=== PATIENT | female | born 1995 | race African-American/Black ===

== ENCOUNTER 2025-04-04 08:26 | Inpatient (IN) | payer OTHER, SELFPAY ==
[2025-04-04] VITALS (41 sets, daily range): BP systolic 73–129; BP diastolic 35–81; PULSE 63–105; RESP 15–25; TEMP 36.6–36.9; O2SAT 97–100; BMI 39.9
[2025-04-04 09:13] LABS: Hematocrit 39.8 % (37.0-47.0); Hemoglobin 12.7 g/dL (12.0-15.0); Immature Granulocyte Percent A 0.9 % (0-0.5); Lymphocytes Absolute Auto 2.12 K/mm3 (0.9-3.2); Mean Corpuscular HGB Conc 31.9 g/dl (32-36); Mean Corpuscular Hemoglobin 27.8 pg (26-34); Mean Corpuscular Volume 87.1 fl (80-100); Nucleated Red Blood Cells Absolute Auto 0.000 K/mm3 (0.0-0.012); Nucleated Red Blood Cells Perc 0.0 % (0.0-0.2); Platelet Count Result 209 k/mm3 (150-375); Red Blood Count 4.57 M/mm3 (4.2-5.4); White Blood Count 8.1 K/mm3 (4.5-10.0)
[2025-04-04] MEDS: ACETAMINOPHEN 500 MG TABLET 1000 MG PO ×3 (09:17→23:29)
[2025-04-04] MEDS: LACTATED RINGERS 1,000 ML 125 ML IV CONT (09:18)
--- NOTE | 2025-04-04 09:23 | LDADM ---
This patient, Mitali Doyle, was admitted to Labor/Delivery/Recovery 119 on 04/04/25 at 08:26. Plans for labor, pain management and were discussed with patient. Patient/family oriented to hospital policies and general routines including ID bracelet, bed and alarms, visiting hours, pain management, procedures, bathroom and other care routines, personal items, smoking policy, room service/diet and guest tray routines, security routines, and visiting hours. Patient/Family are encouraged to report perceived risks to care and to ask questions if they do not understand what they are told or what they should do. See OBIX for further documentation.
--- NOTE | 2025-04-04 09:55 | WPDANESEPPF ---
Anes - Initial Pre Proc Eval Procedure: Operation Date: 04/04/25 12:00 Proposed Procedures p Repeat Section - Catrachito Nicholson MD Date/Time: 04/04/25 09:55 Surgeon: Catrachito Nicholson MD Pre Op Diagnosis: repeat c/s Patient Data Age: 29 Gender: F Height: 1.75 m Weight: 122.5 kg Last Vital Signs Temp 36.6 C 04/04/25 09:17 Pulse 88 04/04/25 09:18 BP 128/80 04/04/25 09:18 O2 Del Method Room Air 04/04/25 09:23 Allergies Allergy/AdvReac Type Severity Reaction Status Date / Time avocado AdvReac Verified 03/13/25 13:54 Laboratory Tests 04/04/25 09:02 WBC 8.1 K/mm3 (4.5-10.0) RBC 4.57 M/mm3 (4.2-5.4) Hgb 12.7 g/dL (12.0-15.0) Hct 39.8 % (37.0-47.0) MCV 87.1 fl (80-100) MCH 27.8 pg (26-34) MCHC 31.9 L g/dl (32-36) RDW 17.1 H % (11.5-14.5) Plt Count 209 k/mm3 (150-375) MPV 9.9 fl (7.4-10.4) Immature Gran % (Auto) 0.9 H % (0-0.5) Neut % (Auto) 60.1 % (45.5-73.1) Lymph % (Auto) 26.0 % (18.3-44.2) [place] % (Auto) 10.8 H % (2.6-8.5) Eos % (Auto) 2.0 % (0-4.4) Baso % (Auto) 0.2 % (0.2-1.2) Lymph # (Auto) 2.12 K/mm3 (0.9-3.2) [place] # (Auto) 0.9 H K/mm3 (0.1-0.6) Eos # (Auto) 0.2 K/mm3 (0-0.3) Baso # (Auto) 0.0 K/mm3 (0.0-0.1) Abs Immat Gran (auto) 0.07 H K/mm3 (0.00-0.031) Absolute Neuts (auto) 4.9 K/mm3 (1.3-6.7) Absolute Nucleated RBC 0.000 K/mm3 (0.0-0.012) Nucleated RBC % 0.0 % (0.0-0.2) Blood Type Pending Antibody Screen Pending Patient hx anesthesia problems: none Family hx anesthesia problems: none Results Review: All pre-operative results and documents have been reviewed as part of the pre-operative evaluation. [facility] Social History Social History Smoking status: Never smoker Substance use: never Lack of Transportation: No Lack of Food: Never True Current Housing: I Have Housing Concerned About Future Housing: No Difficulty Paying Gas/Electric Bills: No Difficulty Paying for Meds: No Currently Unemployed: No Education: High School Diploma/GED Difficulty w/ Childcare or Family Care: No Spiritual care concerns: No Anes - Eval Final PreProcedure Day of Procedure 04/04/25 09:55 Patient weight: obese Heart: regular rate and rhythm Lungs: clear to auscultation and normal air movement Airway: Mallampati scale class II Neurological: alert and oriented Last oral intake: >/= 8 hours ASA classification: II Emergent: no Anesthetic plan: proceed Anesthesia type and monitoring: regional spinal and standard monitoring Results Review: All pre-operative results and documents have been reviewed as part of the pre-operative evaluation. Informed Consent: The patient's anesthetic plan and its attendant risks and benefits were discussed with the patient/family/POA. Questions were solicited and answers provided to the satisfaction of the patient/family/POA.
[2025-04-04 10:08] LABS: Syphilis IgG/IgM Antibody Non-Reactive (Nonreactive)
[2025-04-04] MEDS: FAMOTIDINE 20 MG/2 ML VIAL IV PUSH (11:29)
[2025-04-04] MEDS: ONDANSETRON INJ 4 MG/2 ML VIAL IV PUSH (11:29)
[2025-04-04] MEDS: ceFAZolin 3 GM/D5W 100 ML 100 ML IVPB (11:29)
--- NOTE | 2025-04-04 11:32 | PM.IMHP ---
H&P: HPI History of Present Illness Date/Time: 04/04/25 11:32 Chief Complaint: repeat c section Narrative: Patient is a 29 year old who presents for repeat c section. She has a history of c section x1. Her has been otherwise complicated by obesity. testing has been reactive. She denies strong contractions, leakage of fluid or vaginal bleeding. Good movement. Review of Systems Review of Systems: All systems reviewed & are unremarkable except as noted in HPI and below PMFSH Social History Social History Smoking status: Never smoker Substance use: never Lack of Transportation: No Lack of Food: Never True Current Housing: I Have Housing Concerned About Future Housing: No Difficulty Paying Gas/Electric Bills: No Difficulty Paying for Meds: No Currently Unemployed: No Education: High School Diploma/GED Difficulty w/ Childcare or Family Care: No Spiritual care concerns: No Meds Home Medications and Allergies Allergies Allergy/AdvReac Type Severity Reaction Status Date / Time avocado AdvReac Verified 03/13/25 13:54 Vital Signs Vital Signs - 24 hr 04/04/25 09:17 04/04/25 09:18 04/04/25 09:23 Temperature 97.8 F Pulse Rate 88 Blood Pressure 128/80 Oxygen Delivery Room Air Exam Const: General: comfortable and no acute distress HENMT: Mouth: Yes moist mucous membranes Resp: Effort & Inspection: normal respiratory effort Cardio: Rate: regular rate Skin: General skin exam: normal color Extrem: General: normal to inspection Psych: Mental Status: mental status grossly normal H&P: Results Labs Labs: Short CBC 04/04/25 Range/Units 09:02 WBC 8.1 (4.5-10.0) K/mm3 Hgb 12.7 (12.0-15.0) g/dL Hct 39.8 (37.0-47.0) % Plt Count 209 (150-375) k/mm3 Assessment and Plan Assessment and plan (1) Hx of section complicating : Code(s): O34.219 - Maternal care for unspecified type scar from previous delivery Status: Acute Assessment and Plan: - hx of c section x1 - risks and benefits of repeat c section and TOLAC discussed with patient who would like to proceed with repeat c section - NST reactive
--- NOTE | 2025-04-04 11:39 | WPDHPUPDATE1 ---
History and Physical Update Update Date/Time: 04/04/25 11:39 History and Physical has been reviewed, including an updated exam of the patient. There are NO changes in the patient's condition. Risks, benefits, and alternatives have been discussed and questions answered. Patient agrees to proceed with procedure.
--- NOTE | 2025-04-04 13:20 | P.PCNOB_ITS ---
OB - Delivery Note Procedure Delivery date: 04/04/25 Pre-op diagnosis: Previous Delivery Post-op Diagnosis: Same Delivery monitor: External FHT Prior to decision for section, ACOG/SMFM labor guidelines were consider ed and discussed with the patient and staff. Decision made to proceed with the section.: Yes Procedure Performed: Repeat Secondary branch: low cervical, transverse Surgeon: Catrachito Nicholson MD Anesthesia type: Epidural Description of Procedure/Findings: The patient was taken to the operating room where she was placed in the dorsal supine position with a leftward tilt. The electronic monitor was placed and heart rate was found to be reassuring. She was prepped and draped in the normal sterile fashion, and anesthesia was checked to be adequate. A Pfannenstiel skin incision was made with the scalpel and carried through to the underlying layer of fascia with the scalpel. The fascia was incised in the midline and the incision extended laterally with the Sidhu scissors. The superior aspect of the fascial incision was then grasped with Darryl clamps, elevated, and the underlying rectus muscles dissected off bluntly and with Sidhu scissors. Attention was then turned to the inferior aspect of the fascial incision, which in similar fashion was grasped, elevated, and the rectus muscles dissected off.? The rectus muscles were then in the midline, and the peritoneum entered using two Peans and Metzenbaum scissors. The peritoneal incision was extended superiorly and inferiorly with good visualization of the bladder. With the bladder blade providing retraction and visualization, the lower uterine segment was incised in a transverse fashion with the scalpel. The uterine incision was then extended laterally. The bladder blade was removed and the infant's head was elevated and delivered atraumatically. The remainder of the infant was then delivered without difficulty, and the infant's nose and mouth were suctioned with the bulb suction. The umbilical cord was doubly clamped and cut. The infant was then handed off to the waiting nursing staff. Specimens then obtained as listed below. The placenta was then removed manually and the uterus was exteriorized and cleared of all clots and debris. The uterine incision was repaired with 0- Monocryl in a running, interlocked fashion. A second layer of the same suture imbricated the incision and achieved hemostasis. The posterior cul-de-sac was manually cleared of all clots and debris. The uterus was returned to the abdomen. The gutters were then manually cleared of all clots and debris.? The uterine incision was visualized to be hemostatic. The fascia was reapproximated with 0-Vicryl in a running fashion. The subcutaneous tissues were irrigated with warmed normal saline, and hemostasis was assured. The subcutaneous tissue was greater than 2 cm and closed in a running fashion with 2-0 plain gut suture.? The skin was closed with 4-0 monocryl in a running subcuticular stitch. Fundal pressure was applied to express remaining intrauterine clots and debris. The patient tolerated the procedure well. Sponge, lap, and needle counts were correct times three per nursing. The patient was taken to the recovery room in stable condition. Estimated Blood Loss: 480 Pathology: None sent Complications: No immediate complications Condition: Stable Disposition: Floor Baby Date of : 04/04/25 Gestational Age by Date: 39 gender: Male Weight (pounds): 7 Weight (ounces): 11 presentation: vertex position: Right Occiput Posterior Placenta delivery description: Expressed Cord Vessel Description: 3 Vessels and Delayed Cord Clamping
[2025-04-04] MEDS: OXYTOCIN 30 UNITS/NS 500 ML 30 UNITS/500 ML BAG 125 UNITS IV CONT (13:25)
[2025-04-04] MEDS: LORATADINE 10 MG TABLET PO (13:57)
--- NOTE | 2025-04-04 15:30 | OBPPTRN ---
Patient transferred to post room #280 via stretcher. Support person present. Oriented to unit, room, information board, rooming in, admission packet and security measures. Patient verbalizes understanding.
[2025-04-04] MEDS: DOCUSATE SODIUM 100 MG CAPSULE PO (17:19)
[2025-04-04] MEDS: SIMETHICONE 80 MG TAB.CHEW PO (17:19)
[2025-04-04] MEDS: KETOROLAC 15 MG/ML VIAL (*BKC) IV PUSH ×2 (17:20→23:29)
[2025-04-04] MEDS: DEXTROSE 5%/0.45% SOD CHL 1,000 ML 125 ML IV CONT (17:56)
[2025-04-04] MEDS: LIDOCAINE 5% PATCH 1 PATCH TRANSDERM (19:36)
[2025-04-05 05:04] LABS: Hematocrit 35.2 % (37.0-47.0); Hemoglobin 11.0 g/dL (12.0-15.0); Immature Granulocyte Percent A 0.5 % (0-0.5); Lymphocytes Absolute Auto 2.00 K/mm3 (0.9-3.2); Mean Corpuscular HGB Conc 31.3 g/dl (32-36); Mean Corpuscular Hemoglobin 27.7 pg (26-34); Mean Corpuscular Volume 88.7 fl (80-100); Nucleated Red Blood Cells Absolute Auto 0.000 K/mm3 (0.0-0.012); Nucleated Red Blood Cells Perc 0.0 % (0.0-0.2); Platelet Count Result 193 k/mm3 (150-375); Red Blood Count 3.97 M/mm3 (4.2-5.4); White Blood Count 10.0 K/mm3 (4.5-10.0)
[2025-04-05] MEDS: KETOROLAC 15 MG/ML VIAL (*BKC) IV PUSH (05:28)
[2025-04-05] MEDS: ACETAMINOPHEN 500 MG TABLET 1000 MG PO ×3 (05:29→19:12)
--- NOTE | 2025-04-05 07:25 | WPDANLDPN2 ---
Anes-Prog Note L&D Date/Time: 04/05/25 07:25 Neuro status: Neuro function grossly intact. Cardiovascular status: normal Respiratory status: normal Airway patency: baseline Mental status: baseline Post-Op hydration status: normal Vital Signs: Last Vital Signs Temp 36.6 C 04/04/25 23:50 Pulse 92 04/04/25 23:50 Resp 18 04/04/25 23:50 BP 128/70 04/04/25 23:50 Pulse Ox 100 04/04/25 23:50 O2 Del Method Room Air 04/04/25 19:00 Pain score (VAS): 0 I/O: Intake & Output 04/04/25 04/04/25 04/05/25 15:59 23:59 07:59 Output Total 175 550 500 Balance -175 -550 -500 Post-procedural complaints: none Patient feedback: Patient satisfied with anesthetic care.
--- NOTE | 2025-04-05 07:25 | WPDANLDNPN2 ---
Anes-Prog Note L&D-Neuraxial Date/Time: 04/05/25 07:25 Patient feedback: Patient satisfied with post-operative pain management.
[2025-04-05 07:40] VITALS: BP 116/60; PULSE 80; RESP 20; TEMP 36.2; O2SAT 100
--- NOTE | 2025-04-05 09:10 | P.PNOB_ITS ---
OB - PN: Subj Subjective Date/time seen: 04/05/25 09:10 Interval history: PPD#1 s/p RLTCS Doing well, pain controlled Catheter removed this AM, waiting for spontaneous void Tolerating general diet OB - PN: Obj Data Labs 04/05/25 04:08 Labs: Laboratory Results - last 24 hr 04/04/25 04/05/25 09:02 04:08 WBC 8.1 10.0 RBC 4.57 3.97 L Hgb 12.7 11.0 L Hct 39.8 35.2 L MCV 87.1 88.7 MCH 27.8 27.7 MCHC 31.9 L 31.3 L RDW 17.1 H 17.1 H Plt Count 209 193 MPV 9.9 10.5 H Immature Gran % (Auto) 0.9 H 0.5 Neut % (Auto) 60.1 65.9 Lymph % (Auto) 26.0 19.9 [place] % (Auto) 10.8 H 11.3 H Eos % (Auto) 2.0 2.1 Baso % (Auto) 0.2 0.3 Lymph # (Auto) 2.12 2.00 [place] # (Auto) 0.9 H 1.1 H Eos # (Auto) 0.2 0.2 Baso # (Auto) 0.0 0.0 Abs Immat Gran (auto) 0.07 H 0.05 H Absolute Neuts (auto) 4.9 6.6 Absolute Nucleated RBC 0.000 0.000 Nucleated RBC % 0.0 0.0 Syphilis IgG/IgM Ab Non-reactive Blood Type A Positive Antibody Screen Negative OB - PN A/P Assessment and Plan (1) S/P : Code(s): Z98.891 - History of uterine scar from previous surgery Status: Acute Plan day: 1 Plan: routine care Time Spent With Patient Time: Total time spent is greater than 50% in coordination of care (as documented) at patient's floor/unit and/or counseling patient: Review of Systems 2 Review of Systems: All systems reviewed & are unremarkable except as noted in HPI and below Exam 2 Const: General: comfortable and no acute distress O rientation/consciousness: patient oriented x3 Resp: Effort & Inspection: normal respiratory effort GI: Other: incision c/d/i, soft nontender
[2025-04-05] MEDS: DOCUSATE SODIUM 100 MG CAPSULE PO ×2 (09:18→19:13)
[2025-04-05] MEDS: SIMETHICONE 80 MG TAB.CHEW PO ×3 (09:18→19:13)
[2025-04-05] MEDS: MULTIVIT/MIN/PREN/FOL AC/IRON TABLET 1 TAB PO (09:18)
[2025-04-05] MEDS: IBUPROFEN 600 MG TABLET PO ×2 (11:48→19:12)
--- NOTE | 2025-04-05 13:06 | PCCCNOTE ---
Care Coordination. Patient referred to CC for transportation and resources. Met with pt. and friend at bedside. Pt. plans to return home with her toddler and new baby. She reports having all necessary baby care items, but was interested in more diapers. Gave her resource information including WIC and transportation information. Provided pt. with baby supply basket which has diapers, wipes, etc. Pt. reports having good family support from her mother and denies further CC needs.
[2025-04-05] MEDS: LIDOCAINE 5% PATCH 1 PATCH TRANSDERM (19:09)
[2025-04-05 19:39] VITALS: BP 116/74; PULSE 100; RESP 18; TEMP 36.4; O2SAT 100
[2025-04-06] MEDS: ACETAMINOPHEN 500 MG TABLET 1000 MG PO ×3 (00:35→13:35)
[2025-04-06] MEDS: IBUPROFEN 600 MG TABLET PO ×3 (00:35→13:35)
[2025-04-06 04:47] VITALS: BP 102/60; PULSE 73; RESP 14; TEMP 36.7; O2SAT 99
[2025-04-06] MEDS: SIMETHICONE 80 MG TAB.CHEW PO ×2 (06:59→13:36)
[2025-04-06 07:30] VITALS: BP 126/70; PULSE 84; RESP 18; TEMP 36.3; O2SAT 99
--- NOTE | 2025-04-06 08:34 | P.PNOB_ITS ---
OB - PN: Subj Subjective Date/time seen: 04/06/25 08:34 Interval history: PPD#1 s/p RLTCS Doing well, pain controlled Catheter removed this AM, waiting for spontaneous void Tolerating general diet Patient comments: no complaints, pain well controlled, incisional pain, tolerating diet and flatus present OB - PN: Obj Data Labs 04/05/25 04:08 OB - PN A/P Plan day: 2 Plan: routine care Comments: POD#2 LTCS - no problems, Time Spent With Patient Time: Total time spent is greater than 50% in coordination of care (as documented) at patient's floor/unit and/or counseling patient: Exam 2 Const: General: comfortable, no acute distress and alert Resp: Effort & Inspection: normal respiratory effort Auscultation: no crackles, no rales and no rhonchi Cardio: Rate: regular rate Heart sounds: no click, no murmurs and no rubs GI: Inspection: non-distended Auscultation: normal bowel sounds Other: Incision - CDI Extrem: General: normal to inspection, no pedal edema and no calf tenderness
--- NOTE | 2025-04-06 09:41 | P.DS_ITS ---
DS: Admitting Diagnosis Discharge Date 04/06/2025 Admitting Diagnosis term DS: Discharge Diagnosis Discharge Diagnosis (1) Term delivered: Code(s): O80 - Encounter for full-term uncomplicated delivery Status: Acute OB - DS: Summary OB Procedures : None OB Procedures Intrapartum: OB Procedures: : None Peripartum Data Procedures: Procedures Operation Date: 04/04/25 12:00 Actual Procedure Side Surgeon p Repeat Section Catrachito Nicholson MD Time Spent with Patient Time attestation: Total time spent providing and/or coordinating discharge services: Discharge Plan Discharge Consulting providers: Jayna Catherine Discharging Clinician: Alonso Domingo Patient Disposition: Home Activity: pelvic rest Diet: regular Patient Instructions: Antibiotic Form Patient Language: Upper Sorbian Stand Alone Forms: General Discharge Information Follow-up/Referrals: Alonso Domingo MD [Physician, [employer]ER[employer] ANNOUNCER] Discharge Medications: New hydrocodone-acetaminophen 5-325 mg tablet 1 - 2 tablet PO Q6H PRN (Reason: pain) Qty: 25 0RF Date of admission: 04/04/25 08:26 Primary Care Provider: PHYSICIAN,TIPPLE GREASER Admitting Provider: Catrachito Nicholson Attending physician on admission: Catrachito Nicholson Condition: Stable
[2025-04-06] MEDS: MULTIVIT/MIN/PREN/FOL AC/IRON TABLET 1 TAB PO (10:05)
[2025-04-06] MEDS: DOCUSATE SODIUM 100 MG CAPSULE PO (10:05)
[2025-04-06] MEDS: TETANUS,DIPHTHERIA,AC PERTUSSIS ADULT (0.5 ML) BOOSTRIX IM (13:37)
== END 2025-04-06 16:51 | disposition home or self-care (01) | DRG 540 ==
LOC: ANHLDR 08:30 → ANHOB2 15:37
PROVIDERS: Admitting Provider Obstetrics & Gynecology; Visit Provider Obstetrics & Gynecology
PROC: 10D00Z1 Extraction of Products of Conception, Low, Open Approach (ICD-10-PCS; CPT 59514; principal; 2025-04-04 12:00)
DX: O34.211 Maternal care for low transverse scar from previous cesarean delivery (principal); Z3A.39 39 weeks gestation of pregnancy; Z37.0 Single live birth; O99.214 Obesity complicating childbirth
CPT/HCPCS: 36415; 85025; 86593; 86850; 86900; 86901; 90715; A9270; J0690; J1200; J1885; J2274; J2405; J2590; J7120